=== PATIENT | male | born 1980 | race Caucasian/White ===

== ENCOUNTER 2017-08-19 15:42 | Emergency (ER) | payer OTHER ==
[~2017-08-19] VITALS: Ht 170.2 cm; Wt 69.9 kg
== END 2017-08-19 21:53 | disposition home or self-care (01) ==
LOC: ER 15:42
DX: J11.1 Influenza due to unidentified influenza virus with other respiratory manifestations (principal); K29.70 Gastritis, unspecified, without bleeding

== ENCOUNTER → 2018-04-17 13:51 | Outpatient (CLI) | payer OTHER | END | disposition home or self-care (01) | LOC: LAB 13:51 | DX: J09.X2 Influenza due to identified novel influenza A virus with other respiratory manifestations (principal) ==

== ENCOUNTER 2022-02-22 12:29 | Outpatient (CLI) | payer OTHER | END 2022-02-22 12:38 | disposition home or self-care (01) | LOC: RAD 12:29 | PROVIDERS: ATTEND General Practice | DX: M54.50 Low back pain, unspecified (principal) ==